=== PATIENT | female | born 1950 | race Caucasian/White ===

== ENCOUNTER 2017-07-17 06:56 | Inpatient (IN) ==
[2017-07-09 18:22] LABS: Basophils # (Auto) 0 K/mcL (0.0-0.3); Basophils % (Auto) 0.3 % (0.0-2.0); Eosinophils # (Auto) 0.3 K/mcL (0.0-0.7); Eosinophils % (Auto) 3.7 % (0.0-7.0); Granulocytes % (Auto) 66.4 % (38.0-78.0); Lymphocytes # (Auto) 1.9 K/mcL (1.5-4.8); Lymphocytes % (Auto) 20.1 % (15.5-49.0); Mean Cell Volume 90.9 fL (80.0-100.0); Mean Corpuscular HGB Conc 33.4 g/dL (31.0-36.0); Mean Corpuscular Hemoglobin 30.4 pg (26.0-34.0); Monocytes # (Auto) 0.9 K/mcL (0.1-0.9); Monocytes % (Auto) 9.5 % (1.0-12.0); Platelet Count 262 K/mcL (140-440); RBC 4.36 M/mcL (4.00-5.20); Red Cell Distribution Width 14.7 % (11.5-14.5)
[2017-07-09 18:45] LABS: Blood Urea Nitrogen 19 mg/dl (8-23)
[2017-07-09 19:24] LABS: Appearance,Urine CLEAR; Bilirubin,Urine NEG (NEG); Color,Urine STRAW; Glucose,Urine (UA) NEGATIVE (NEG); Leukocyte Esterase,Urine NEG /uL (NEG); Nitrate,Urine NEG (NEG); Protein,Urine NEG (NEG); Specific Gravity,Urine 1.008 (1.000-1.035); Urine Blood NEG mg/dL (<0.03); Urobilinogen,Urine NEG (NEG)
[~2017-07-17 06:56] MED LIST: CELECOXIB 200 MG CAPSULE PO SCH; KETOROLAC 30 MG, ROPIVACAINE HCL/PF 49.5 ML, EPINEPHrine 0.5 MG, 0.9 % SODIUM CHLORIDE ... IJ SCH; PREGABALIN 75 MG CAPSULE PO SCH; ceFAZolin 1 GM VIAL IV SCH; oxyCODONE 10 MG TAB.ER.12H PO SCH
[2017-07-17] MEDS ORDERED: LIDOCAINE HCL/PF 100 MG/5 ML SYRINGE IV ONE (09:45)
[2017-07-17] MEDS ORDERED: TRANEXAMIC ACID 1,000 MG/10 ML VIAL IV ONE ×2 (09:45→11:28)
[2017-07-17] MEDS ORDERED: MIDAZOLAM 2 MG/2 ML VIAL IV ONE (09:45)
[2017-07-17] MEDS ORDERED: ONDANSETRON 4 MG/2 ML VIAL IV ONE (09:45)
[2017-07-17] MEDS ORDERED: DEXAMETHASONE 10 MG/ML VIAL IV ONE (09:45)
[2017-07-17] MEDS ORDERED: ROPIVACAINE HCL/PF 20 ML VIAL IJ ONE (09:45)
[2017-07-17] MEDS ORDERED: PROPOFOL 200 MG/20 ML VIAL IV ONE (09:45)
[2017-07-17] MEDS ORDERED: MEPERIDINE 50 MG/ML SYRINGE IM PRN (10:48)
[2017-07-17] MEDS ORDERED: ePHEDrine 50 MG/ML AMPUL IV PRN (10:48)
[2017-07-17] MEDS ORDERED: FLUMAZENIL 0.1 MG/ML ML IV PRN (10:48)
[2017-07-17] MEDS ORDERED: NALOXONE HCL 0.4 MG/ML VIAL IV PRN (10:48)
[2017-07-17] MEDS ORDERED: IPRATROPIUM/ALBUTEROL 3 ML AMPUL.NEB NEB PRN (10:48)
[2017-07-17] MEDS ORDERED: MEPERIDINE 25 MG/ML SYRINGE IV PRN (10:48)
[2017-07-17] MEDS ORDERED: METHOCARBAMOL 1,000 MG/10 ML VIAL IV PRN (10:48)
[2017-07-17] MEDS ORDERED: PROMETHAZINE 25 MG/ML VIAL IM PRN (10:48)
[2017-07-17] MEDS ORDERED: ONDANSETRON 4 MG/2 ML VIAL IV PRN ×2 (10:48→11:28)
[2017-07-17] MEDS ORDERED: diphenhydrAMINE 50 MG/ML VIAL IV PRN (10:48)
[2017-07-17] MEDS ORDERED: fentaNYL 100 MCG/2 ML VIAL IV PRN (10:48)
[2017-07-17] MEDS ORDERED: BENZOCAINE/MENTHOL 1 LOZENGE PO PRN ×2 (10:48→11:28)
[2017-07-17] MEDS ORDERED: ACETAMINOPHEN 1,000 MG/100 ML BOTTLE IV ONE (10:48)
[2017-07-17] MEDS ORDERED: PROMETHAZINE 25 MG/ML VIAL IV PRN (10:48)
[2017-07-17] MEDS ORDERED: LACTATED RINGERS 250 ML IV PRN (10:48)
[2017-07-17] MEDS ORDERED: LACTATED RINGERS 1,000 ML IV SCH (11:00)
--- NOTE | 2017-07-17 11:27 | Brief Operative Note ---
Date of procedure: 07/17/17 Pre-op diagnosis: Left knee severe DJD Post-op diagnosis: same Procedure: 1) Left robotic assisted total knee arthroplasty 2) hardware removal deep of tibial screw Grafts/Implants: Yes (Lucas triathlon CR 4 femur, 5 tibia, 11 x3 insert, 33 patella) Anesthesia: spinal, GLMA Findings: severe tricompartmental arthritis Complications: none Surgeon: Jose Bill Machine Edge Bander: Shahzad Anthony Estimated blood loss (cc): 30 Specimens Removed/Pathology: other (tibial screw) Condition: stable Disposition: PACU
[2017-07-17] MEDS ORDERED: FLEETS ADULT ENEMA PR PRN (11:28)
[2017-07-17] MEDS ORDERED: METHOCARBAMOL 750 MG TABLET PO PRN (11:28)
[2017-07-17] MEDS ORDERED: HYDROmorphone 2 MG/ML SYRINGE IV PRN (11:28)
[2017-07-17] MEDS ORDERED: POLYETHYLENE GLYCOL 3350 17 GM PACKET PO PRN (11:28)
[2017-07-17] MEDS ORDERED: BISACODYL 10 MG SUPP.RECT PR PRN (11:28)
[2017-07-17] MEDS ORDERED: MAGNESIUM HYDROXIDE 30 ML ORAL.SUSP PO PRN (11:28)
--- NOTE | 2017-07-17 12:25 | XRay Report ---
CLINICAL INFORMATION: Status post right total knee arthroplasty TECHNIQUE: AP, lateral, patellar views COMPARISON: None. FINDINGS: Status post left total knee arthroplasty. Femoral and tibial complements are in anatomic positions. There is an ACL interference screw in place there is postsurgical soft tissue and intra-articular gas IMPRESSION: Post left total knee arthroplasty Interpreted and Authenticated by: Chema Mae 07/17/17
--- NOTE | 2017-07-17 12:30 | Operative Note ---
DATE OF OPERATION: 07/17/2017 PREOPERATIVE DIAGNOSIS: Left knee severe tricompartmental osteoarthritis. POSTOPERATIVE DIAGNOSIS: Left knee severe tricompartmental osteoarthritis. PROCEDURE PERFORMED: 1. Left robotic-assisted total knee arthroplasty placing a [place] Triathlon size 4 cruciate retaining femoral component, size 5 tibial baseplate, an 11 mm X3 tibial insert with a 33 mm patellar button. 2. Hardware removal of previous ACL tibial interference screw. SURGEON: Jose Bill M.D. BOW TACKER: Mike Anthony PA-C. ANESTHESIA: Spinal plus general. DRAINS: None. SPECIMENS: Bone cuts, which were discarded, and tibial screw. BLOOD LOSS: 30 mL. COMPLICATIONS: None. POSTOPERATIVE CONDITION: Stable. INDICATIONS FOR SURGERY: This is a 66-year-old female who had a remote history of injury to the knee requiring anterior cruciate ligament reconstruction. She has had a many year history of steadily worsening pain. Radiographs showed severe tricompartmental osteoarthritis [id number]. FINDINGS AT SURGERY: Severe tricompartmental osteoarthritis. Post-procedure showed excellent limb alignment, joint stability, and patellar tracking. PROCEDURE IN DETAIL: The patient had been seen preoperatively. Informed consent had been obtained after discussion of risks and benefits of surgery. Risks including, but not limited to, bleeding, possibly requiring transfusion; infection, possibly requiring implant removal and prolonged IV antibiotics; injury to nerves, blood vessels, and other surrounding structures; anesthetic risks; incomplete or no resolution of symptoms; stiffness; pain; swelling; instability; DVT and pulmonary embolus risks; and the possibility of needing further revision surgery. She understood these risks and wished to proceed. Correct operative site was marked in preoperative holding and patient received spinal anesthesia. She was then taken to the operating room and LMA general given. The left lower extremity was then carefully prepped and draped in normal sterile fashion, and a time-out was performed verifying patient name, operative site, and plan. Esmarch was used to exsanguinate the extremity and tourniquet was inflated to 300 mmHg. Her previous ACL incision distally was incorporated into a midline skin incision through skin and subcutaneous tissue. Hemostasis was obtained with Bovie cautery. Irrisept was irrigated and then a medial parapatellar arthrotomy was performed, and a subperiosteal exposure of the anterior medial tibia was performed with Bovie. We did expose her tibial screw, and an osteotome was used to remove some bone around the edges and then a screwdriver was used to back this out. We then exposed the distal anterior cortex of the femur with Bovie. Anterior horns of the menisci were removed and retropatellar fat pad excised. We then made stab incisions, two over the femur and two over the tibia and bicortical pins placed. Our arrays were connected. We then placed our femoral and tibial checkpoints. Hip center of rotation was checked and then green probe used to keron the medial and lateral malleoli. Double checks were done with green probe of the femoral and tibial check points. We then used the blue probe to do our mapping, and once this was completed, we removed osteophytes. We then checked our flexion and extension gaps. Our flexion gap was 17 mm medial and lateral. Our extension gap was tight medial and loose lateral, so we placed the femur in 4 degrees of varus to get 17 mm medial and 18 mm lateral in extension. We checked our patellar tracking which looked good, and so we went ahead and put this into the robotic and then the KENNY arm was brought in. We did our routine checks and then made our bone cuts. Once this was completed, we then marked our tibial rotation with the green probe and then size 5 tibial baseplate was pinned into place. Boss reamer and keel punch were used to prepare and then femur was elevated. A keeled tibial baseplate was placed first and then the femur was elevated and curved osteotome used to remove posterior osteophytes. We also removed posterior horns of the menisci. The femoral trial was then impacted and pinned. We went ahead and made our peg holes with the drill and then a 9 insert trial was placed. The knee was taken into extension. A free hand resection was done of the patella after measuring. We removed about 11 mm of bone. We sized this to a 33 which was medialized maximally. Holes were drilled and then trial patellar button was placed. We went ahead and performed a lateral facetectomy and then the definitive implants were opened and antibiotic cement was mixed. We irrigated Irrisept after drilling some holes in the sclerotic portion of the bone to aid in cement interdigitation. After the Irrisept sat for a minute, we pulse lavaged copiously with saline and then CO2 gun was used to clean and dry the cancellous bone surfaces. We cemented the tibia followed by the femur. Excess cement was removed and a 9 insert trial was placed. The knee was taken into extension. Patellar button was cemented. After all cement had been removed, we filled the joint with Irrisept and then injected pain cocktail into the pericapsular and subcutaneous tissues. After cement had fully hardened, we pulse lavaged copiously with saline and then flexed the knee up. We removed the 9 trial. As we did reach full extension, and it felt like there was maybe room for some increased tension, we went ahead and trialed an 11 insert and liked this even better and still got within a couple of degrees of full extension. We went ahead and removed the 11 trial. An 11 insert was opened. We injected posterior capsule with pain cocktail and then Irrisept was irrigated and then tibial insert was impacted. After a minute we pulse lavaged and then knee was placed in 45 degrees of flexion. Interrupted #2 FiberWire [id number] were used around the superior quadrant of the patella, interrupted #1 Vicryl used around the inferior quadrant, running #1 Vicryl was used for patellar tendon and quad tendon. Checkpoints had been removed prior to this closure. We then used another Irrisept irrigation, after a minute more pulse lavage, and then 2-0 Monocryl for subcutaneous and edward for skin. The pins were removed and edward used for those. Xeroform and sterile dressing was applied. Tourniquet was released. The patient was awakened, extubated, and transferred to recovery in stable condition. BJB:gin Job ID: [id number] Doc ID: [id number] Jose Bill MD
[2017-07-17] MEDS: 0.9 % SODIUM CHLORIDE 1,000 ML IV SCH ×2 (13:43→22:00)
[2017-07-17] MEDS: KETOROLAC 30 MG/ML VIAL IV SCH ×2 (13:44→17:30)
[2017-07-17] MEDS: 0.9 % SODIUM CHLORIDE 10 ML SYRINGE IV SCH ×2 (14:28→22:00)
[2017-07-17] MEDS ORDERED: POTASSIUM CHLORIDE 10 MEQ TABLET PO SCH (17:30)
[2017-07-17] MEDS: POTASSIUM CHLORIDE 10 MEQ TABLET PO SCH (17:30)
[2017-07-17] MEDS: HYDROcodone/APAP 10/325MG TABLET PO PRN ×2 (17:31→21:24)
[2017-07-17] MEDS: ceFAZolin 1 GM VIAL IV SCH (17:56)
[2017-07-17] MEDS: DOCUSATE SODIUM 100 MG CAPSULE PO SCH (20:20)
[2017-07-17] MEDS: ASPIRIN 325 MG ENTERIC COATED TABLET PO SCH (20:20)
[2017-07-17] MEDS: ACIDOPH PARACASEI B LACTIS PO SCH (20:25)
[2017-07-17] MEDS ORDERED: TOLTERODINE 2 MG CAP.XL.24H PO SCH (21:00)
[2017-07-17] MEDS ORDERED: ATORVASTATIN 20 MG TABLET PO SCH (21:00)
[2017-07-17] MEDS ORDERED: PROGESTERONE PO SCH (21:00)
[2017-07-17] MEDS ORDERED: PRASTERONE PO SCH (21:00)
[2017-07-17] MEDS ORDERED: SENNOSIDES 1 TABLET PO SCH (21:00)
[2017-07-18] MEDS: ceFAZolin 1 GM VIAL IV SCH (00:58)
[2017-07-18] MEDS: KETOROLAC 30 MG/ML VIAL IV SCH ×3 (00:58→11:43)
[2017-07-18] MEDS: HYDROcodone/APAP 10/325MG TABLET PO PRN ×3 (01:20→10:03)
[2017-07-18] MEDS: 0.9 % SODIUM CHLORIDE 10 ML SYRINGE IV SCH (05:33)
[2017-07-18] MEDS: 0.9 % SODIUM CHLORIDE 1,000 ML IV SCH (06:06)
[2017-07-18] MEDS ORDERED: CALCIUM CARBONATE PO SCH (09:00)
[2017-07-18] MEDS ORDERED: TRIAMTERENE/HYDROCHLOROTHIAZID 1 TABLET PO SCH (09:00)
[2017-07-18] MEDS ORDERED: MULTIVIT,THER IRON,CA,FA & MIN 1 TABLET PO SCH (09:00)
[2017-07-18] MEDS ORDERED: MAGNESIUM OX PO SCH (09:00)
[2017-07-18] MEDS ORDERED: CHLORTHALIDONE 25 MG TABLET PO SCH (09:00)
[2017-07-18] MEDS: ASPIRIN 325 MG ENTERIC COATED TABLET PO SCH (09:05)
[2017-07-18] MEDS: ACIDOPH PARACASEI B LACTIS PO SCH (09:05)
[2017-07-18] MEDS: DOCUSATE SODIUM 100 MG CAPSULE PO SCH (09:06)
[2017-07-18] MEDS: POTASSIUM CHLORIDE 10 MEQ TABLET PO SCH ×2 (09:06→11:44)
--- NOTE | 2017-07-18 10:06 | Discharge Summary ---
Ortho Discharge - TKA - Patient Instructions Diet: Regular Diet Activity: activity as tolerated Total Knee Protocol: For Total Knee: Start ROM VENANCIO with stationary bike or rocking chair. Work on gaining full extension of knee. Posterior dislocation precautions provided. Hip abductor strengthening and gait training instructions provided. Apply Cryocuff as instructed. Dressing Care: Aquacel Ag - leave on for 5 days Patient Education: Total Knee Replacement (DC) Additional Instructions: Discharge Instructions: Do the exercises at home that physical therapy gave you. You are scheduled to start physical therapy at [facility] ([phone]) on at 10:00 am, please arrive 15 minutes early for paperwork. Take your prescription, photo ID, insurance cards, and current medication list with you to your first physical therapy appointment. Take your prescription to pear picker any medication or equipment (such as walker, crutches, toilet riser or C.P.M.) Wear comfortable clothing for your physical therapy. Weight bearing as tolerated. You have the Aquacel Ag dressing, leave in place for 7 days then remove. If dressing becomes soiled (turns black), remove and use gauze 4x4 dressing and silvasorb ointment and change daily. Keep incision clean and dry. You may start showering on post op day #2. To avoid constipation while taking any narcotic pain medication, take an over the counter stool softener/laxative. Use your Cryocuff or ice packs as directed, on for 20 minutes at a time throughout the day. This and elevation will help with pain and swelling. Call your physician for fevers above 100.5 or pain not controlled by medication. Your prescriptions are with your discharge information. Some medications were electronically transmitted to your pharmacy of choice. - Follow Up Plan Follow Up Appointments: Jose Bill MD [Physician] - 07/30/17 2:20 pm Disposition: Home, Self-Care Prognosis: Good Rehab Potential: Good - Orders For Discharge Additional Discharge Orders: Physical Therapy at Discharge - TKA Location: Determined By Patient Toilet Riser Discharge Order Location: Determined By Patient Walker Location: Determined By Patient Potassium Location: Determined By Patient
--- NOTE | 2017-07-18 10:09 | Orthopedic Progress Note ---
Subjective Patient information: Note initiated : 07/18/17 at 10:07 am Service Date, if different from initiated Date: [] Patient: Radames Rick 66 y/o F admitted on 07/17/17 for Left Total Knee Arthroplasty Naldo. Chief Complaint: [] Principal diagnosis: s/p L TKA Interval history: ambulating well Objective Vital signs: Vital Signs Temp Pulse Resp BP Pulse Ox 07/18/17 08:00 77 07/18/17 06:44 97.8 F 16 128/71 95 07/18/17 04:00 98.2 F 77 18 116/68 95 07/18/17 00:00 98.9 F 71 18 112/64 95 07/17/17 19:48 98.2 F 83 18 109/66 92 07/17/17 15:30 98.1 F 18 124/81 96 07/17/17 14:30 112/74 94 07/17/17 14:00 115/74 96 07/17/17 13:30 108/60 92 07/17/17 13:15 105/68 91 07/17/17 13:00 112/72 91 07/17/17 12:45 96.5 F L 16 117/72 91 07/17/17 12:30 98.3 F 77 15 110/63 99 07/17/17 12:15 78 14 100/52 99 07/17/17 12:00 91 H 14 99/62 99 07/17/17 11:48 99.3 F H 78 14 100/52 99 Intake and Output 07/17/17 07/18/17 07/18/17 21:59 05:59 13:59 Intake Total 720 / 720 600 / 600 820 / 820 Output Total 600 / 600 350 / 350 Balance 120 / 120 250 / 250 820 / 820 Intake: Oral 720 / 720 600 / 600 820 / 820 Output: Void Amount 600 / 600 350 / 350 Other: Meal Breakfast Percent of Meal Consumed 50% Feeding Ability Independent # Voids 1 Weight 214 lb Intake & Output: Intake & Output 07/17/17 07/18/17 07/18/17 21:59 05:59 13:59 Intake Total 720 / 720 600 / 600 820 / 820 Output Total 600 / 600 350 / 350 Balance 120 / 120 250 / 250 820 / 820 Weight 214 lb Intake: Oral 720 / 720 600 / 600 820 / 820 Output: Void Amount 600 / 600 350 / 350 Other: Meal Breakfast Percent of Meal Consumed 50% Feeding Ability Independent # Voids 1 Dressing: Yes clean, Yes dry, Yes intact Neurological exam IM: Yes alert, Yes oriented X3 - Labs CBC & BMP: 07/18/17 05:10 07/09/17 16:40 Labs: Orthopedic Labs 07/09/17 16:40 PT 13.7 INR 1.0 07/18/17 07/09/17 05:10 16:40 Hgb 10.9 L 13.3 Hct 32.4 L 39.7 Assessment and Plan (1) Status post total knee replacement, left POD#1-doing well, no c/o -d/c home Status: Acute
[2017-07-19] MEDS ORDERED: NABUMETONE 500 MG TABLET PO SCH (21:00)
== END 2017-07-18 12:18 | disposition home or self-care (01) | DRG 470 ==
LOC: MEDSUR 06:56
PROVIDERS: ADMIT Orthopaedic Surgery; ATTEND Orthopaedic Surgery

== ENCOUNTER 2022-08-27 13:30 | Observation (INO) ==
[2022-08-27] MEDS ORDERED: morphine 4 MG/ML VIAL IV PRN (14:10)
--- NOTE | 2022-08-27 14:10 | Emergency Department Note ---
Abdominal Pain HPI General Chief Complaint: Abdominal Pain Stated Complaint: Stomach Pain Time Seen by Provider: 08/27/22 14:03 Source: patient Mode of arrival: ambulatory Limitations: no limitations History of Present Illness HPI Narrative: 71-year-old female presents to the minor care clinic with diagnosis of acute appendicitis. She was seen there at [address] of the abdomen pelvis revealed a inflamed appendix measuring 1.5 cm, no perforations, no abscess. White blood cell count is 15,500 with left shift. Patient received Toradol at [facility] and rates her pain currently is a 6/10. Patient notes symptoms that started last night, worse this morning. Had some chills in minor care. No fever. Some nausea, but no vomiting. Previous surgeries include a rectocele/cystocele repair and several joint procedures. No previous abdominal surgeries. No other significant medical history. Related Data Home Medications Medication Instructions Recorded Confirmed omega-3 fatty acids 1,000 mg 2,000 mg PO DAILY 03/14/15 08/27/22 capsule L.acidoph, paracasei,B. lactis 10 1 cap PO DAILY 07/09/17 08/27/22 billion cell capsule coenzyme Q10 100 mg capsule 300 mg PO DAILY 07/09/17 08/27/22 multivit,tx with iron 27 2 tab PO DAILY 07/09/17 08/27/22 sj-pwekwqv-fztwj acid 0.4 mg-minerals tablet Tumeric PO 01/10/20 08/27/22 Thyrosol PO 06/17/22 08/27/22 estradiol 0.5 mg tablet 0.5 mg PO QDAY 06/17/22 08/27/22 fluorouracil 5 % topical cream 1 applic topical 06/17/22 08/27/22 melatonin 5 mg tablet 5 mg PO HS PRN 06/17/22 08/27/22 prasterone (dhea) 10 mg tablet 10 mg PO QDAY 06/17/22 08/27/22 testosterone topical 06/17/22 08/27/22 Previous Rx's Medication Instructions Recorded rosuvastatin 10 mg tablet 20 mg PO HS #180 tabs 09/05/21 potassium chloride 10 mEq 10 meq PO BID #180 tabs 03/11/22 tablet,extended release triamterene 37.5 1 cap PO DAILY #90 caps 03/31/22 mg-hydrochlorothiazide 25 mg capsule escitalopram oxalate 10 mg tablet 10 mg PO QDAY #90 tabs 06/17/22 progesterone micronized 100 mg 100 mg PO QHS #90 caps 06/25/22 capsule Allergies Allergy/AdvReac Type Severity Reaction Status Date / Time codeine AdvReac Mild Nausea Verified 08/27/22 13:35 Erythromycin Base AdvReac Mild Nausea Verified 08/27/22 13:35 Review of Systems ROS ROS Narrative: Narrative: All systems ED: reviewed and negative except as stated. [facility] Narrative Patient History Narrative: Narrative: Medical/Surgical/Family History All Active Problems Acute appendicitis (Acute) Acute appendicitis (Acute) Medicare annual wellness visit, initial (Acute) Hyponatremia (Acute) Acute URI (Acute) Radiculopathy of lumbar region (Acute) Chronic pain (Chronic) Right hip pain (Chronic) Obesity (Chronic) Obstructive sleep apnea (Chronic) Women's annual routine gynecological examination (Chronic) Abdominal pain (Chronic) Painful joint (Chronic) Depression (Chronic) Easy bruising (Chronic) High blood pressure (Chronic) Thigh pain (Chronic) Hip pain (Chronic) Chronic SI joint pain (Chronic) Other low back pain (Chronic) Localized swelling, mass and lump, neck (Chronic) History of surgery (Chronic ~06/28/20) Sinusitis (Chronic) Vertigo (Chronic) Anxiety (Chronic) Status post total knee replacement, left (Chronic ~1997) Plantar fasciitis (Chronic) Foot pain, right (Chronic) OAB (overactive bladder) (Chronic) Sleep apnea (Chronic) Rotator cuff tear (Chronic) Post-traumatic osteoarthritis, right shoulder (Chronic) Osteoarthrosis (Chronic) Benign essential hypertension (Chronic) Arthritis (Chronic) Insomnia (Chronic 03/10/12) Hypercholesterolemia (Chronic) Menopausal syndrome (Chronic) Eczema (Chronic) Urinary tract infection (Chronic) Squamous cell carcinoma of skin of trunk, except scrotum (Chronic 11/18/13) Hx of skin malignancy (Chronic) Menorrhagia (Chronic) Hx of melanoma of skin (Chronic) Major depression, single episode (Chronic) H/O reconstruction of anterior cruciate ligament tear (Chronic) History of left breast biopsy (Chronic 04/19/14) Breast mass (Chronic) History of hernia repair (Chronic ~2003) Basal cell carcinoma of skin (Chronic) Status post wrist surgery (Chronic ~1994) Status post biopsy of skin (Chronic 11/18/13) Medical History Abdominal pain Anxiety Arthritis Basal cell carcinoma of skin Benign essential hypertension 1999 HCTZ Breast mass 10/2008 Had interval follow up with every 6 month mammograms that were normal, recommendation now is for every year. Chronic pain Chronic SI joint pain Depression Easy bruising Eczema Foot pain, right High blood pressure Hip pain History of reduction of closed dislocation Right Shoulder-1989 Hx of melanoma of skin Hx of skin malignancy Hypercholesterolemia Insomnia (03/10/12) Localized swelling, mass and lump, neck Major depression, single episode While living in [place], [place], was treated with Prozac, exercise and counseling Medicare annual wellness visit, initial Menopausal syndrome Menorrhagia OAB (overactive bladder) Obesity Obstructive sleep apnea Osteoarthrosis Progressive left knee osteoarthrosis. Other low back pain Painful joint Plantar fasciitis Post-traumatic osteoarthritis, right shoulder Right hip pain Rotator cuff tear Right shoulder Sinusitis Sleep apnea Squamous cell carcinoma of skin of trunk, except scrotum (11/18/13) On chest wall Thigh pain Urinary tract infection Vertigo Surgical History H/O reconstruction of anterior cruciate ligament tear 1997 History of anterior colporrhaphy (~05/2020) Vaginal History of hernia repair (~2003) Right inguinal hernia repair History of left breast biopsy (04/19/14) See path report History of shoulder surgery (~2015) Right History of surgery (~06/28/20) Cystocele and Rectocele Repair done by Dr. Vinny Anaya Status post biopsy of skin (11/18/13) Left chest biopsy Status post total knee replacement, left (~1997) ACL reconstruction total arthroplasty-07/2017 Status post wrist surgery (~1994) Closed Reduction and percutaneous pinning Right wrist Family History Father Coronary artery disease Type 2 diabetes mellitus, Onset Age: 60 Cancer High blood pressure Maternal Grandfather Coronary artery disease, Onset Age: 69 Maternal Grandmother Cerebrovascular accident (CVA) Paternal Grandfather Type 2 diabetes mellitus, Onset Age: 50 Mother High blood pressure Osteoporosis, Onset Age: 65 Cancer Arthritis Sister Cancer Family/Other High blood pressure Grandparent Arthritis Grandparent Social History Smoking Status: Former smoker Alcohol Intake Frequency: a few times a month Substance Use: does not use Exam Narrative Narrative: General: AOx3, NAD, nontoxic appearing. Pleasant and conversant. HEENT: PERRL, EOMI, normocephalic. Moist mucous membranes. Normal facies and normal dentition. Respiratory: Lungs clear to auscultation bilaterally. No respiratory distress. Unlabored breathing. Heart: Regular rate and rhythm, no murmurs/clicks/rubs. Abdomen: Not examined Extremities: Warm and well perfused. No edema. DP 2+ bilaterally. No venous stasis. Neuro: No focal deficits. Cranial nerves II-XII grossly normal. Skin: Warm dry, no rashes or lesions, no cyanosis. Psych: Normal mood and affect Heme/Lymph: No abnormal bruising General Limitations: no limitations Course Vital Signs Vital signs: Vital Signs Temperature 98.2 F 08/27/22 13:33 Pulse Rate 89 08/27/22 13:33 Respiratory Rate 16 08/27/22 13:33 Blood Pressure 154/91 08/27/22 13:33 Pulse Oximetry (%) 96 08/27/22 13:33 Oxygen Delivery Method 08/27/22 13:33 Temperature 98.2 F 08/27/22 16:37 Pulse Rate 80 08/27/22 18:36 Respiratory Rate 15 08/27/22 18:36 Blood Pressure 109/70 08/27/22 18:36 Pulse Oximetry (%) 90 08/27/22 18:36 Oxygen Delivery Method 08/27/22 13:33 [facility] MDM Narrative Medical decision making narrative: Acute appendicitis IV fluids and Zosyn have been initiated. IV morphine for pain. Dr. De La Cruz has been called and has evaluated the patient. Plan will be for admission and surgical intervention today. Discharge Plan Patient/Caregiver Discharge Instructions Pt seen by PROJ MGR/PA only: Yes Clinical Impression: Acute appendicitis Patient Disposition: Xfer As Outpt/Obs ([facility]) Condition: Fair Discharge Date/Time: 08/27/22 16:26 Discharge Comment: To procedure
[2022-08-27] MEDS ORDERED: 0.9 % SODIUM CHLORIDE 1,000 ML IV ONE (14:11)
[2022-08-27] MEDS ORDERED: PIPERACILLIN SODIUM/TAZOBACTAM 3.375 GM in DEXTROSE 5% IN WATER 50 ML IV ONE (14:54)
--- NOTE | 2022-08-27 15:39 | General Surgery Consult Note ---
HPI Date of Consult Consult Date: 08/27/22 Requesting physician: Rosanna Ramirez Primary Care Provider: Tremaine Carranza PA-C Consult Narrative Chief complaint: RLQ Pain Reason for consult: Acute Appendicitis History of present illness: Radames is seen in consultation today with a less than 24 hour history of fairly intense RLQ Pain that came on abruptly in the middle of the night. She presented to the ER where an Abdominal CT Scan demonstrated findings consistent with Acute Appendicitis. She has had a prior inguinal hernia repair on the Right Side and also has had a prior Cystocoele repair. She is in good CardioPulmonary Health and denies any use of oral anticoagulants. Her last Colonoscopy was 2 years ago with a finding of a few benign polyps. cc:: CC: PFSH PFSH All Active Problems Acute appendicitis (Acute) Medicare annual wellness visit, initial (Acute) Hyponatremia (Acute) Acute URI (Acute) Radiculopathy of lumbar region (Acute) Chronic pain (Chronic) Right hip pain (Chronic) Obesity (Chronic) Obstructive sleep apnea (Chronic) Women's annual routine gynecological examination (Chronic) Abdominal pain (Chronic) Painful joint (Chronic) Depression (Chronic) Easy bruising (Chronic) High blood pressure (Chronic) Thigh pain (Chronic) Hip pain (Chronic) Chronic SI joint pain (Chronic) Other low back pain (Chronic) Localized swelling, mass and lump, neck (Chronic) History of surgery (Chronic ~06/28/20) Sinusitis (Chronic) Vertigo (Chronic) Anxiety (Chronic) Status post total knee replacement, left (Chronic ~1997) Plantar fasciitis (Chronic) Foot pain, right (Chronic) OAB (overactive bladder) (Chronic) Sleep apnea (Chronic) Rotator cuff tear (Chronic) Post-traumatic osteoarthritis, right shoulder (Chronic) Osteoarthrosis (Chronic) Benign essential hypertension (Chronic) Arthritis (Chronic) Insomnia (Chronic 03/10/12) Hypercholesterolemia (Chronic) Menopausal syndrome (Chronic) Eczema (Chronic) Urinary tract infection (Chronic) Squamous cell carcinoma of skin of trunk, except scrotum (Chronic 11/18/13) Hx of skin malignancy (Chronic) Menorrhagia (Chronic) Hx of melanoma of skin (Chronic) Major depression, single episode (Chronic) H/O reconstruction of anterior cruciate ligament tear (Chronic) History of left breast biopsy (Chronic 04/19/14) Breast mass (Chronic) History of hernia repair (Chronic ~2003) Basal cell carcinoma of skin (Chronic) Status post wrist surgery (Chronic ~1994) Status post biopsy of skin (Chronic 11/18/13) Medical History Abdominal pain Anxiety Arthritis Basal cell carcinoma of skin Benign essential hypertension 1999 HCTZ Breast mass 10/2008 Had interval follow up with every 6 month mammograms that were normal, recommendation now is for every year. Chronic pain Chronic SI joint pain Depression Easy bruising Eczema Foot pain, right High blood pressure Hip pain History of reduction of closed dislocation Right Shoulder-1989 Hx of melanoma of skin Hx of skin malignancy Hypercholesterolemia Insomnia (03/10/12) Localized swelling, mass and lump, neck Major depression, single episode While living in [place], [place], was treated with Prozac, exercise and counseling Medicare annual wellness visit, initial Menopausal syndrome Menorrhagia OAB (overactive bladder) Obesity Obstructive sleep apnea Osteoarthrosis Progressive left knee osteoarthrosis. Other low back pain Painful joint Plantar fasciitis Post-traumatic osteoarthritis, right shoulder Right hip pain Rotator cuff tear Right shoulder Sinusitis Sleep apnea Squamous cell carcinoma of skin of trunk, except scrotum (11/18/13) On chest wall Thigh pain Urinary tract infection Vertigo Surgical History H/O reconstruction of anterior cruciate ligament tear 1998 History of anterior colporrhaphy (~05/2020) Vaginal History of hernia repair (~2003) Right inguinal hernia repair History of left breast biopsy (04/19/14) See path report History of shoulder surgery (~2015) Right History of surgery (~06/28/20) Cystocele and Rectocele Repair done by Dr. Vinny Anaya Status post biopsy of skin (11/18/13) Left chest biopsy Status post total knee replacement, left (~1997) ACL reconstruction total arthroplasty-07/2017 Status post wrist surgery (~1994) Closed Reduction and percutaneous pinning Right wrist Family History Father Coronary artery disease Type 2 diabetes mellitus, Onset Age: 60 Cancer High blood pressure Maternal Grandfather Coronary artery disease, Onset Age: 69 Maternal Grandmother Cerebrovascular accident (CVA) Paternal Grandfather Type 2 diabetes mellitus, Onset Age: 50 Mother High blood pressure Osteoporosis, Onset Age: 65 Cancer Arthritis Sister Cancer Family/Other High blood pressure Grandparent Arthritis Grandparent Social History household members: spouse housing: house lives independently: Yes marital status: education level: college service: No senior living: No occupational status: employed and retired occupation: [employer] pets and animals: No leisure activities: exercise hx recent travel: No sexually active: Yes other: Children well-balanced diet: daily or most days physical activity: walking, bicycling, aerobics and weight training frequency: 5-6 times per week smoking status: Former smoker smoking status stop date: 08/31/80 alcohol intake frequency: a few times a month substance use type: does not use special jong needs: No victim of physical abuse: No victim of emotional abuse: No victim of sexual abuse: No MEDS/ALLERGIES Home Medications and Allergies Home Medications Medication Instructions Recorded Confirmed Type omega-3 fatty acids 1,000 mg 2,000 mg PO DAILY 03/14/15 08/27/22 History capsule L.acidoph, paracasei,B. lactis 10 1 cap PO DAILY 07/09/17 08/27/22 History billion cell capsule coenzyme Q10 100 mg capsule 300 mg PO DAILY 07/09/17 08/27/22 History multivit,tx with iron 27 2 tab PO DAILY 07/09/17 08/27/22 History dt-kvygysx-mcfue acid 0.4 mg-minerals tablet Tumeric PO 01/10/20 08/27/22 History rosuvastatin 10 mg tablet 20 mg PO HS #180 tabs 09/05/21 08/27/22 Rx potassium chloride 10 mEq 10 meq PO BID #180 tabs 03/11/22 08/27/22 Rx tablet,extended release triamterene 37.5 1 cap PO DAILY #90 caps 03/31/22 08/27/22 Rx mg-hydrochlorothiazide 25 mg capsule Thyrosol PO 06/17/22 08/27/22 History escitalopram oxalate 10 mg tablet 10 mg PO QDAY #90 tabs 06/17/22 08/27/22 Rx estradiol 0.5 mg tablet 0.5 mg PO QDAY 06/17/22 08/27/22 History fluorouracil 5 % topical cream 1 applic topical 06/17/22 08/27/22 History melatonin 5 mg tablet 5 mg PO HS PRN 06/17/22 08/27/22 History prasterone (dhea) 10 mg tablet 10 mg PO QDAY 06/17/22 08/27/22 History testosterone topical 06/17/22 08/27/22 History progesterone micronized 100 mg 100 mg PO QHS #90 caps 06/25/22 08/27/22 Rx capsule Allergies Allergy/AdvReac Type Severity Reaction Status Date / Time codeine AdvReac Mild Nausea Verified 08/27/22 13:35 Erythromycin Base AdvReac Mild Nausea Verified 08/27/22 13:35 Physical Examination Vital Signs Vital signs: Temp Pulse Resp BP Pulse Ox O2 Del Method 98.2 F 89 16 154/91 96 08/27/22 13:33 08/27/22 13:33 08/27/22 13:33 08/27/22 13:33 08/27/22 13:33 08/27/22 13:33 General physical appearance General physical exam: well developed and no distress Eyes Eye exam: normal ocular movement Head Head exam IM: Present atraumatic, normal inspection and normocephalic Neck Neck exam: trachea midline and no lymphadenopathy Cardiovascular Cardiovascular exam IM: Present RRR Respiratory Respiratory exam: other (normal effort without distress ) Abdomen Abdomen: Present soft (TTP in RLQ consitent with Acute Appendicitis, belly otherwise soft and non distended with excess adiposity ) Integumentary Integumentary: Present other (normal appearing intact skin ) Neurologic Neurologic: Present other (grossly intact ) Psychiatric Psychiatric: Present oriented to time, oriented to person and oriented to place Results Labs Labs: All other labs normal. A/P Assessment and plan (1) Acute appendicitis: Assessment and plan: Acute Appendicitis Surgery is recommended with a full review of Risks, benefits, potential complications and alternative treatment options all of which are reviewed at length including option for non operative mgmt, possible need for drain placement, conversion to an open procedure, injury to surrounding structures, trocar injury, stump leak, abscess formation, and others as well She would like to proceed with surgery and we will contact the OR and begin making those arrangements and will begin IV ABs as well My contact info is provided should any questions or concerns arise. Status: Acute Time Spent With Patient Time: Total time spent is greater than 50% in coordination of care (as documented) at patient's floor/unit and/or counseling patient:
[2022-08-27] MEDS ORDERED: ACETAMINOPHEN 1,000 MG/100 ML BAG IV ONE (15:59)
[2022-08-27] MEDS ORDERED: ROCURONIUM 10 MG/ML ML IV ONE (16:38)
[2022-08-27] MEDS ORDERED: HYDROmorphone 1 MG/ML SYRINGE ONE (16:38)
[2022-08-27] MEDS ORDERED: LIDOCAINE HCL/PF 100 MG/5 ML SYRINGE IV ONE (16:38)
[2022-08-27] MEDS ORDERED: PROPOFOL 200 MG/20 ML VIAL IV ONE (16:38)
[2022-08-27] MEDS ORDERED: fentaNYL 100 MCG/2 ML VIAL IV ONE (16:38)
[2022-08-27] MEDS ORDERED: MAGNESIUM SULFATE 2 GM/50 ML BAG IV ONE (16:38)
[2022-08-27] MEDS ORDERED: DEXAMETHASONE 10 MG/ML VIAL ONE (16:38)
[2022-08-27] MEDS ORDERED: PHENYLephrine 1 MG/10 ML SYRINGE (ANEST) ONE (16:38)
[2022-08-27] MEDS ORDERED: SUGAMMADEX SODIUM 200 MG/2 ML VIAL IV ONE (16:38)
[2022-08-27] MEDS ORDERED: ONDANSETRON 4 MG/2 ML VIAL ONE (16:38)
[2022-08-27] MEDS ORDERED: TRANEXAMIC ACID 1,000 MG/10 ML VIAL ONE (16:38)
[2022-08-27] MEDS ORDERED: BUPIVACAINE W/EPI 0.5% 50 ML VIAL IJ ONE (17:15)
[2022-08-27] MEDS ORDERED: METHOCARBAMOL 1,000 MG/10 ML VIAL IV PRN (17:33)
[2022-08-27] MEDS ORDERED: PROMETHAZINE 25 MG/ML VIAL IV PRN (17:33)
[2022-08-27] MEDS ORDERED: fentaNYL 100 MCG/2 ML VIAL IV PRN (17:33)
[2022-08-27] MEDS ORDERED: LABETALOL 5 MG/ML ML IV PRN (17:33)
[2022-08-27] MEDS ORDERED: NALOXONE HCL 0.4 MG/ML VIAL IV PRN (17:33)
[2022-08-27] MEDS ORDERED: HYDROmorphone 0.5 MG/0.5 ML SYRINGE IV PRN ×2 (17:33→18:47)
[2022-08-27] MEDS ORDERED: IPRATROPIUM/ALBUTEROL 3 ML AMPUL.NEB NEB PRN (17:33)
[2022-08-27] MEDS ORDERED: LACTATED RINGERS 1,000 ML IV SCH (17:45)
[2022-08-27] MEDS ORDERED: ONDANSETRON 4 MG/2 ML VIAL IV PRN (18:53)
--- NOTE | 2022-08-27 19:04 | Brief Operative Note ---
Brief Operative Note Date of procedure: 08/27/22 Pre-op diagnosis: Acute Appendicitis Post-op diagnosis: same Procedure: Laparoscopic Appendectomy Grafts/Implants: No Anesthesia: GETA Findings: Acute Suppurative Appendicitis with surrounding purulence but no evidence of definitive gangrene, necrosis, or perforation Complications: none Surgeon: Dave De La Cruz Estimated blood loss (cc): 3 Specimens Removed/Pathology: other (Appendix ) Condition: stable Disposition: PACU
[2022-08-27] MEDS: DEXTROSE 5%-LR 1,000 ML IV SCH (19:21)
[2022-08-27] MEDS: PIPERACILLIN SODIUM/TAZOBACTAM 3.375 GM in DEXTROSE 5% IN WATER 50 ML IV SCH (20:00)
[2022-08-27] MEDS: ACETAMINOPHEN 650 MG/65 ML BAG IV SCH (22:38)
[2022-08-27] MEDS: oxyCODONE HCL 5 MG TABLET PO PRN (23:55)
[2022-08-28] MEDS: PIPERACILLIN SODIUM/TAZOBACTAM 3.375 GM in DEXTROSE 5% IN WATER 50 ML IV SCH ×3 (01:31→13:50)
[2022-08-28] MEDS: oxyCODONE HCL 5 MG TABLET PO PRN ×2 (03:33→16:35)
[2022-08-28] MEDS: ACETAMINOPHEN 650 MG/65 ML BAG IV SCH ×2 (05:49→13:04)
[2022-08-28] MEDS: DEXTROSE 5%-LR 1,000 ML IV SCH (05:49)
[2022-08-28 06:26] LABS: Hematocrit 34.9 % (34.1-44.9); Hemoglobin 11.4 g/dL (11.2-15.7); Mean Cell Volume 92.8 fL (80.0-100.0); Mean Corpuscular HGB Conc 32.7 g/dL (31.0-36.0); Mean Platelet Volume 9.6 fL (8.8-12.5); Platelet Count 250 K/mcL (140-440); RBC 3.76 M/mcL (3.59-5.38); Red Cell Distribution Width 13.7 % (11.5-14.5); WBC 13.4 K/mcL (4.5-11.0)
[2022-08-28 06:52] LABS: Blood Urea Nitrogen 9 mg/dL (8-23); Carbon Dioxide 23 mmol/L (22-30); Chloride 98 mmol/L (96-108); Glomerular Filtration Rate 75; Glucose 172 mg/dL (70-105)
--- NOTE | 2022-08-28 10:17 | EKG ---
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 Measurements Intervals [place] Rate: 83 P: 40 DE: 166 QRS: 0 QRSD: 96 T: 26 QT: 393 QTc: 463 Interpretive Statements Sinus rhythm Consider left ventricular hypertrophy Electronically Signed On 08-28-2022 10:17:10 PST by Chema Hawk M.D. /store/[email or web address]/[id number]
[2022-08-28] MEDS ORDERED: DEXTROSE 5%-LR 1,000 ML IV SCH (10:43)
[2022-08-28] MEDS ORDERED: BISACODYL 10 MG SUPP.RECT PR PRN (10:44)
--- NOTE | 2022-08-28 13:27 | General Surgery Progress Note ---
SUBJECTIVE Subjective Patient information: Note initiated : 08/28/22 at 900 am Service Date, if different from initiated Date: [] Patient: Radames Rick 71 y/o F admitted on 08/27/22 for Stomach Pain. Chief Complaint: [] Doing well this am, incisional pain well controlled Constitutional Vitals: Vital Signs Temp Pulse Resp BP Pulse Ox O2 Del Method O2 Flow Rate 98.2 F 66 20 137/77 94 2 08/28/22 12:00 08/28/22 12:00 08/28/22 12:00 08/28/22 12:00 08/28/22 12:00 08/28/22 12:00 08/27/22 20:50 Period Temp Pulse Resp BP Sys/Collins Pulse Ox O2 Del Method O2 Flow Rate Last 24 Hr 97.7 F-98.2 F 63-89 15-24 98-154/63-91 88-98 Nasal Cannula- Room Air, CPAP 2-2 Intake and Output 08/28/22 08/28/22 08/28/22 03:59 11:59 19:59 Intake Total 1865 1115 Output Total 700 850 625 Balance 1165 265 -625 Intake & Output: Intake & Output 08/28/22 08/28/22 08/28/22 03:59 11:59 19:59 Intake Total 1865 1115 Output Total 700 850 625 Balance 1165 265 -625 Intake: IV 165 1115 Dextrose 5%-Lactated Ringers 1, 1000 000 ml @ 100 mls/hr IV .Q10H RADHA Rx#:[id number] Zosyn 3.375 gm In Dextrose 5% 100 50 in Water 50 ml @ 100 mls/hr IV Q6H RADHA Rx#:[id number] Oral 1700 Output: Void Amount 700 850 625 Other: Urine Appearance Clear Clear Clear Urine Color Bright Yellow Yellow Bright Yellow Urine Odor Normal Normal # Voids 1 1 Exam: Looks well, non toxic Respiratory Additional comments: non labored, no distress Cardiovascular Cardiovascular exam: Present RRR GI/Abdominal Additional comments: soft and non distended, minimally tender, dressings intact A/P Assessment and plan (1) Acute appendicitis: Assessment and plan: POD #1 Lap Appendectomy Doing Well Advance Diet Increase Activity Probable Discharge home later today Status: Acute Time Spent With Patient Time: Total time spent is greater than 50% in coordination of care (as documented) at patient's floor/unit and/or counseling patient:
--- NOTE | 2022-08-29 08:19 | Operative Note ---
DATE OF OPERATION: 08/27/2022 DATE OF PROCEDURE: 08/27/2022 PREOPERATIVE DIAGNOSIS: Acute appendicitis. POSTOPERATIVE DIAGNOSIS: Acute appendicitis. OPERATIVE PROCEDURE: Laparoscopic appendectomy. SURGEON: Dave De La Cruz M.D. ANESTHESIA: General. PREOPERATIVE MEDICATIONS: Zosyn 3.375 grams IV. INDICATIONS: The patient is a 71-year-old female who presented to the Emergency Room earlier today with a less than 24-hour history of a fairly abrupt onset right lower quadrant pain. She was seen in the ER. CT scan was obtained, which demonstrated findings consistent with acute appendicitis. Risks, benefits, potential complications, and alternative treatment options of all management approaches were discussed including nonoperative management with IV antibiotics, and observational approach. We recommended surgery for her, however, and she wished to undergo this procedure. DESCRIPTION OF PROCEDURE: The patient was taken to the OR and placed supine on the OR table, placed under general anesthesia and intubated. Bilateral SCDs were applied. All pressure sensitive areas were carefully padded. Both the right and left arms were tucked at her side. All pressure sensitive areas were carefully padded. She was carefully positioned by the OR team. The abdomen was then prepped and draped widely in a sterile fashion. Procedure began with accessing the peritoneal cavity utilizing a 0-degree, 5-mm scope through a Visiport in the right upper abdomen. Once peritoneal access was obtained and pneumoperitoneum was obtained, we examined the area of access to make sure there was no evidence of injury; none was seen. The right upper abdominal 0-degree scope was then changed out for a 30-degree, 5-mm scope. Two additional 5 mm trocars, one in the periumbilical location, another in the left lower abdomen under direct laparoscopic vision. The camera was then resited to the periumbilical site and the 5 mm right upper abdominal trocar was changed out for 12 mm trocar under direct vision. Next, the patient was airplaned towards the left side in slight reverse Trendelenburg position. The cecum was identified and purulent fluid could be seen in the right pericolic gutter adjacent to the cecum. We were able to this down to identify the appendix at its takeoff point from the cecum and then mobilize it bluntly up and out of the right pericolic gutter without difficulty. This was done primarily with blunt dissection. The appendix was grasped and examined. It appeared to be acutely inflamed. There was purulent discharge in the pericolic gutter as discussed. There was no evidence of necrosis or maya rupture. A small window was then made at the base of the mesoappendix at its junction point with the appendix itself. This window was then widened and enlarged to allow us to transect the mesoappendix with a single firing of the 35 mm endovascular stapler. We then mobilized the appendix in its entirety and then transected just above its junction point with the cecum with an additional firing of the stapler. This liberated the appendix in its entirety. It was placed in an EndoCatch and taken out through the right upper abdominal trocar site under direct vision without difficulty. It was examined briefly on the back table and sent to pathology. The entire area of dissection was then examined and irrigated out. There was no active bleeding or hemorrhage. The area was copiously irrigated until all the effluent returned clear. No other abnormalities were seen. I applied some Surgicel in a judicious manner to both the staple lines to minimize risk of postoperative bleeding. We then removed the right upper abdominal 12 mm trocar site and closed this with two interrupted 0 Vicryl suture utilizing the inlet fascial closure device and then the remaining trocars were removed under direct vision and pneumoperitoneum was relieved. The incisions were then closed with interrupted 3-0 Vicryl and 4-0 Monocryl sutures, respectively. Steri-Strips and sterile dressings were applied. The patient was awakened and transferred to PACU in satisfactory condition after being extubated without issue. She appeared to tolerate the procedure well. ESTIMATED BLOOD LOSS: Less than 5 mL. DRAINS: None. FINDINGS: Acute suppurative appendicitis without evidence of necrosis, gangrene or rupture. BW:rose Job ID: [id number] Doc ID: [id number] Dave De La Cruz M.D.
[2022-08-29] MEDS ORDERED: BISACODYL 5 MG TABLET PO SCH (09:00)
== END 2022-08-28 17:16 | disposition home or self-care (01) ==
LOC: ED 13:30 → MEDSUR 16:23 → SUR 16:23 → MEDSUR 18:41
PROVIDERS: ADMIT Surgery Surgical Critical Care; ATTEND Surgery Surgical Critical Care